=== PATIENT | male | born 1985 | race Caucasian/White ===

== ENCOUNTER 2017-10-30 13:01 | Emergency (ER) | payer SELFPAY ==
[~2017-10-30] VITALS: Ht 182.9 cm; Wt 113.8 kg
[~2017-10-30 13:01] MED LIST: PROTONIX40 MG PO; ULTRAM50 MG PO
[2017-10-30] MEDS ORDERED: NAPROSYN500 MG PO (16:34)
[2017-10-30] MEDS ORDERED: NORCO 5/3251 TABLET PO (16:34)
[2017-10-30 16:44] VITALS: BP 155/94
== END 2017-10-30 16:46 | disposition home or self-care (01) ==
LOC: EME 13:01
DX: Z77.098 Contact with and (suspected) exposure to other hazardous, chiefly nonmedicinal, chemicals (principal); H57.13 Ocular pain, bilateral; K21.9 Gastro-esophageal reflux disease without esophagitis; H91.90 Unspecified hearing loss, unspecified ear
CPT/HCPCS: 99281; 99284; J1885